=== PATIENT | male | born 1965 | race Caucasian/White ===

== ENCOUNTER 2016-06-11 22:24 | Emergency (ER) | payer MEDICAID ==
[~2016-06-11] VITALS: Ht 182.9 cm; Wt 56.8 kg
[2016-06-11 22:23] VITALS: PULSE 90; RESP 18; O2SAT 95
[2016-06-11] MEDS ORDERED: TdaP Vaccine 0.5 mL Inj IM ONE (22:50)
--- NOTE | 2016-06-11 22:54 | ED.REPORT ---
HPI-Abd Pain F 2 and Over Date of Service Jun 11, 2016 ED Provider: Teddy Servin DO The pt is a 50 y/o male with no pertinent medical history presenting to ED w/ complaints of R hand pain and swelling. The pt punched a wooden wall earlier this evening, resulting in multiple abrasions on his right hand and knuckles. He reports stinging pain over the raw spots on his hand. He broke the wooden wall but did not hear his bone break. The pt is not up to date on his tetanus. Nursing Notes Stated Complaint: RIGHT HAND PAIN/SWELLING Chief Complaint: Extremity Trauma Nursing Notes Reviewed: Yes General Time Seen by MD: 22:47 Chief Complaint Other (R hand pain and swelling ) Hx Obtained from: Patient Arrived by: Walk-in Sudden in Onset?: Yes Onset Occurred: 1 - 4 hours ago Symptom Duration: Since onset Recent Healthcare: No recent doctor visit, No recent hospitalization Similar Sx Previous: No Past Medical History Past Medical History none reported Past Surgical History none reported Smoking History Unknown if Ever Smoker Ambulatory Status Ambulatory Status: Independent Review of Systems Review of Systems Note: right hand abrasions Constitutional: Denies: Chills, Fever Respiratory: Denies: Non-productive cough, Shortness of breath Musculoskeletal: Reports: Extremity pain, Joint pain (R hand ), Joint swelling (R hand ) Complete sys rev & neg: except as marked. Physical Exam Initial Vital Signs Vital Signs (First) Date Time Temp Pulse Resp B/P Pulse Ox O2 Delivery O2 Flow Rate FiO2 06/11/16 22:23 36.5 90 18 95 Room Air 06/12/16 00:54 143/90 Initial VS: Reviewed General / Constitutional: Awake, Alert Respiratory / Chest: Atraumatic, Breath sounds NL, Breath sounds = bilat, No respiratory distress Cardiovascular: Heart rate NL, Regular rhythm, Heart sounds NL Abdomen: Atraumatic, Soft, Non-tender Back: Atraumatic, Full range of motion Head / Eyes: Atraumatic, Normocephalic, PERRL, EOMI ENT: Atraumatic, Airway patent, Mucous membranes moist Skin: Color NL, No rash, Warm, Dry Neurologic: Orientation NL for age, Speech NL for age, No motor deficits, No sensory deficits Neck: Atraumatic, Supple, Full range of motion Upper Extremity / MS: Atraumatic, Full range of motion Wrist / Hand: Neurologic intact, Vascular intact Soft tissue swelling of right hand Deformity at right 4th and 5th MCP joint Multiple abrasions across dorsal aspect of PIP joints No signs of tendon compromise or lacerations Lower Extremity / Pelvis / MS: Atraumatic, Full range of motion Psychiatric: Affect NL, Mood NL Interpretation & Diagnostics Pulse Oximetry Interpretation Pulse Oximetry Interpretation: 95% on room air Pulse Oximetry: Pulse Ox normal X-Ray Interpretation Xray Interpretation: No acute findings X-Ray Ordered: Hand right Interpretation / Wet Read by: Wet read ED physician Procedures Splint Application - Fx Mgt Splint Application- Fx Mgt: Velcro splint Time: 23:30 Procedure Performed by: Glass Sagger, Under my direct supervis Precise Anatomic Location: right hand Definitive Fracture Care: Splint Post-Procedure / Complications: Cap refill normal, Post splint vascular nl, Post splint neuro nl, Condition improved, Tolerated procedure well, Patient stable Re-Eval/Medical Decision Med Decision/Clinical Course I recommend a splint of Ortho-Glass. Rafael declines this. Uses handlebar work. He did agree to the Velcro splint. Recommended also that he has follow-up x-rays in a week if the pain persists. Short course of hydrocodone provided for pain. Routine opiate warnings given Source of Hx: Old records Re-Evaluation/Progress : Time of Eval: 22:47 Patient Status: Condition improved Re-Evaluation/Progress Note: Pt informed of his diagnosis and the plan for discharge during the initial interview. The pt understands and agrees with the plan. All questions are addressed at this time. Counseled Regarding: Diagnosis, Lab results, Need for follow-up, When/why to return to ED Discharge & Departure Impression: Primary Impression: Contusion of hand, right Disposition: Home Discharge Condition All VS Reviewed: Yes Condition: Stable Patient Instructions: Contusions in Adults (ED), Splint Care (ED) Additional Instructions: Keep hand splinted for a week. If symptoms persist for more than 6 days then have follow up xrays. Take 1-2 [place] every 6 hours as needed for severe pain. Do not drive, drink alcohol, or consume acetaminophen while taking the [place]. Call your primary care physician and orthopedics in the morning to arrange a follow up appointment next week. Return to the emergency department if you develop any new or worsening symptoms. Referrals: Yury Mead MD [facility] Scribe Attestation Portions of this note were transcribed by Leno Krueger and Jona Velez. I, Dr. Servin personally performed the history, physical exam and medical decision-making ; I reviewed and confirmed the accuracy of the information in the transcribed note. Signed by: Leno Krueger and Jona Velez, [place], 06/12/16 and 0034. Yury Mead MD; [facility] Leno Krueger Jun 11, 2016 22:54 JONA VELEZ Jun 11, 2016 23:26 Teddy Servin DO Jun 12, 2016 00:59
[2016-06-11] MEDS ORDERED: _HYDROcodone/APAP 5-325 mg Tablet PO PRN (23:10)
[2016-06-12 00:54] VITALS: BP 143/90; PULSE 79; RESP 20; O2SAT 94
--- NOTE | 2016-06-12 10:29 | DRSVH ---
PROCEDURE: X-RAY RIGHT HAND, MINIMUM THREE VIEWS ([id number]) INDICATIONS: punch wall TECHNIQUE: 3 views of the hand(s) acquired. COMPARISON: None. FINDINGS: Bones: No fractures or dislocations but there is subluxation of the base of the first metacarpal aga inst the trapezium, subluxed laterally. Carpal bones are normally aligned. No suspicious bony lesio ns. Soft tissues: No suspicious soft tissue calcifications. IMPRESSION: No fracture found. Subluxation of the base of the first metacarpal against the trapezium is present laterally, but this may represent a congenital variant given the morphology of the distal trapezium seen on AP projection. Please correlate clinically. Dictated by: Phillip Leone M.D. on 06/12/2016 at 10:26 Approved by: Phillip Leone M.D. on 06/12/2016 at 10:27
== END 2016-06-12 00:22 | disposition home or self-care (01) ==
LOC: SED 22:24 → EDBD 22:24 → SED 06-12 00:22
DX: S60.221A Contusion of right hand, initial encounter (principal); W22.01XA Walked into wall, initial encounter; Y93.89 Activity, other specified; Y92.009 Unspecified place in unspecified non-institutional (private) residence as the place of occurrence of the external cause; Y99.8 Other external cause status; Z23 Encounter for immunization